=== PATIENT | male | born 1955 | race Caucasian/White ===

== ENCOUNTER 2023-01-17 09:43 | Outpatient (CLI) | payer OTHER ==
[~2023-01-17] VITALS: Ht 167.7 cm; Wt 75.4 kg
[2023-01-17] MEDS ORDERED: SIMV20TA26 PO (15:45)
[2023-01-17] MEDS ORDERED: OMEP20TA56 PO (15:45)
[2023-01-17] MEDS ORDERED: LOSA50TA63 PO (15:45)
[2023-01-17] MEDS ORDERED: MELO15TA39 PO (15:45)
[2023-01-17] MEDS ORDERED: HYDR25TA4 PO (15:45)
[2023-01-17] MEDS ORDERED: SIME80TA16 PO (15:45)
== END 2023-01-17 15:48 | disposition home or self-care (01) ==
LOC: PREOP 09:43
PROVIDERS: ATTEND Surgery
DX: Z01.818 Encounter for other preprocedural examination (principal)

== ENCOUNTER 2023-01-29 09:16 | Day surgery (SDC) | payer OTHER ==
[~2023-01-29] VITALS: Ht 167.7 cm; Wt 75.4 kg
[~2023-01-29 09:16] MED LIST: HYDR25TA4 PO; LOSA50TA63 PO; MELO15TA39 PO; OMEP20TA56 PO; SIME80TA16 PO; SIMV20TA26 PO
[2023-01-29] MEDS ORDERED: LACTATED RINGERS 1,000 ML 1,000 ML IV STA (09:20)
[2023-01-29] MEDS ORDERED: HURRICAINE EXT TUBE (BENZOCAINE) XX PRN (09:30)
--- NOTE | 2023-01-29 09:32 | Progress Note-Pre Operative ---
Pre-Operative Progress Note Date of Available H&P: Jan 16, 2023 Date H&P Reviewed: Jan 29, 2023 Time H&P Reviewed: 09:30 History & Physical: H&P Reviewed, Patient Examed, No changes noted Pre-Operative Diagnosis: Dysphagia, GERD KIYA RENDON DO Jan 29, 2023 09:32
[2023-01-29 09:41] VITALS: BP 142/82
[2023-01-29] MEDS ORDERED: proPOfol INJECTION 200 MG/20 ML VIAL IV ONE (11:13)
[2023-01-29 11:17] VITALS: BP 107/63
--- NOTE | 2023-01-29 11:17 | Anesthesia-General Post-Op ---
MAC Patient Condition Mental Status/LOC: Same as Preop Cardiovascular: Satisfactory Nausea/Vomiting: Absent Respiratory: Satisfactory Pain: Controlled Complications: Absent Post Op Complications Complications None Follow Up Care/Instructions Patient Instructions None needed. Anesthesiology Discharge Order Discharge Order Patient is doing well, no complaints, stable vital signs, no apparent adverse anesthesia problems. No complications reported per nursing. NICOLE RODRGÍUEZ CRNA Jan 29, 2023 11:17
[2023-01-29 11:22] VITALS: BP 126/73
[2023-01-29 11:25] VITALS: BP 128/76
--- NOTE | 2023-01-29 12:09 | Progress Note-Post Operative ---
Post-Operative Progess Note Surgeon (s)/Firesetter (s) Surgeon KIYA RENDON DO Firesetter: none Pre-Operative Diagnosis Dysphagia, GERD Post-Operative Diagnosis Esophagitis Gastritis Hiatal hernia Procedure & Operative Findings Date of Procedure 01/29/23 Procedure Performed/Findings EGD with biopsy PROCEDURE NOTE: After informed consent was obtained, the patient was brought to the endoscopy suite, placed in bed in left lateral decubitus position. He was administered IV sedation by the CRYOGENICS ENGINEER who then monitored vitals the entire time, heart rate, blood pressure and pulse ox and the scope was inserted down the mouth through the esophagus into the stomach. On the way down, noted some mild esophagitis, took a picture, pushed into the stomach, pushed past the antrum into the duodenum. Duodenum looked good. Pulled back and did a biopsy of antrum, then retroflexed the scope, saw 1cm Grade II AFS hiatal hernia, took a picture of this and then pulled the scope into the GE junction, took another picture of the hiatal hernia and then did a biopsy of the GE junction. Pushed the scope back into the stomach, suctioned all the air out of the stomach. At this point pulled the scope up the esophagus and out the mouth. I did not see any strictures of the esophagus and the vocal chords looked normal. The patient tolerated the procedure, and he recovered in endoscopy suite. Anesthesia Type IV sedation by CRYOGENICS ENGINEER Estimated Blood Loss Estimated blood loss (mL): scant Specimens/Packing Specimens Removed antral bx body of stomach bx GE jxn x 2 KIYA RENDON DO Jan 29, 2023 12:09
--- NOTE | 2023-01-29 12:10 | Endoscopy Discharge Instruct ---
Endo Procedure/Findings Findings 1.: Gastritis 2.: Other Findings (Esophagitis) 3.: Hiatal Hernia Discharge Instructions - Activity: You might feel a little sleepy until tomorrow. This is due to the medicine you received to relax you. Until tomorrow, you should: NOT drive a car, operate machinery or power tools. NOT drink any alcoholic beverages. NOT make any important decisions or sign importortant papers. Do not return to work until tomorrow, unless otherwise instructed. Resume previous activities tomorrow. Diet: Start by taking liquids. If you tolerate liquids, advance to solid food. 1.: EGD in 3 years Notify Physician - If you experience excessive bleeding, unusual abdominal pain, fever, or chest pain, contact your doctor immediately. Follow-Up: Other Follow up in my office in one week KIYA RENDON DO Jan 29, 2023 12:10
[2023-01-29 12:30] VITALS: BP 128/76
== END 2023-01-29 12:30 | disposition home or self-care (01) ==
LOC: ENDO 09:16
PROVIDERS: ATTEND Surgery
DX: K21.00 Gastro-esophageal reflux disease with esophagitis, without bleeding (principal); K29.70 Gastritis, unspecified, without bleeding; K44.9 Diaphragmatic hernia without obstruction or gangrene; Z87.891 Personal history of nicotine dependence; Z86.010 Personal history of colon polyps; Z79.899 Other long term (current) drug therapy
CPT/HCPCS: 88305